=== PATIENT | female | born 1995 | race American Indian/Alaskan Native ===

== ENCOUNTER 2017-06-06 08:59 | Inpatient (IN) | payer MEDICAID ==
[2017-06-06] MEDS ORDERED: Sodium Chloride 0.9% 10 ML Syringe FLUSH PRN (13:07)
--- NOTE | 2017-06-06 13:27 | PCM.LDHP ---
L&D History of Present Illness - General Date of Service: 06/06/17 Admit Problem/Dx: Patient Status Order with Admit Dx/Problem 06/06/17 09:05 Patient Status [ADT] Routine Admission Diagnosis/Problem Admission Diagnosis/Problem Source of Information: Patient, Old Records History Limitations: Reports: No Limitations - History of Present Illness Introduction:: Cramping and contractions that last night. She noticed leakage of fluid this morning, cramping is mild to moderate nothing seems to improve it's every 10-15 minutes. No fever. She just recently presented to clinic for the first time, and from records she is not immune to rubella, aside depression and anxiety stable asthma that is well controlled, and he still does use during but she quit she also continues to smoke. Location, : Reports: Abdomen Improves with: Reports: None Worsens with: Reports: None Associated Symptoms: Reports: vaginal fluid - Related Data Allergies/Adverse Reactions: Allergies Allergy/AdvReac Type Severity Reaction Status Date / Time No Known Allergies Allergy Verified 06/06/17 13:09 Home Medications: Home Meds NK [No Known Home Meds] 04/08/15 [History] Past Medical History Respiratory History: Reports: Asthma CEMENT MIXER History: Reports: Other OB/BYN History: Psychiatric History: Reports: Anxiety, Depression Social & Family History - Family History Family Medical History: Noncontributory - Tobacco Use Smoking Status *Q: Current Every Day Smoker Years of Tobacco use: 4 Packs/Tins Daily: 0.5 Second Hand Smoke Exposure: Yes - Caffeine Use Caffeine Use: Reports: None - Recreational Drug Use Recreational Drug Use: No H&P Review of Systems - Review of Systems: Review Of Systems: ROS reveals no pertinent complaints other than HPI. L&D Exam - Exam Exam: See Below - Vital Signs Vital Signs: Last Vital Signs Temp Pulse 74 06/06/17 12:41 Resp BP 120/74 06/06/17 11:02 Pulse Ox 100 06/06/17 09:37 Weight: 77.111 kg - OB Specific Contraction Duration (sec): 50-70 Contraction Frequency (min): 3-4 Contraction Intensity: Mild - Morrissey Score Morrissey Score Cervix Position: Posterior Morrissey Score Consistency: Soft Morrissey Score Dilation: 1-2 cm Morrissey Score 's Station: -2 - Exam General: Alert, Oriented HEENT: PERRLA, Conjunctiva Clear, EACs Clear, EOMI, Hearing Intact, Mucosa Moist & Maybeury, Nares Patent, Normal Nasal Septum, Posterior Pharynx Clear, TMs Clear Neck: Supple, Trachea Midline Lungs: Clear to Auscultation, Normal Respiratory Effort Cardiovascular: Regular Rate, Regular Rhythm GI/Abdominal Exam: Normal Bowel Sounds, Soft, Non-Tender, No Organomegaly, No Distention, No Abnormal Bruit, No Mass, Pelvis Stable Rectal Exam: Normal Exam, Normal Rectal Tone Genitourinary: Normal external exam, Normal bimanual exam, Normal speculum exam Back Exam: Normal Inspection, Full Range of Motion Extremities: Normal Inspection, Normal Range of Motion, Non-Tender, No Pedal Edema, Normal Capillary Refill Skin: Warm, Dry, Intact Neurological: Cranial Nerves Intact, Reflexes Equal Bilateral Psychiatric: Alert, Normal Affect, Normal Mood - Patient Data Lab Results Last 24 hrs: Laboratory Results - last 24 hr 06/06/17 06/06/17 06/06/17 Range/Units 09:27 10:28 10:28 WBC 8.4 (4.5-12.0) X10-3/uL RBC 4.02 (3.23-5.20) x10(6)uL Hgb 11.2 L (11.5-15.5) g/dL Hct 33.1 (30.0-51.3) % MCV 82.3 (80-96) fL MCH 27.8 (27.7-33.6) pg MCHC 33.7 (32.2-35.4) g/dL RDW 13.3 (11.5-15.5) % Plt Count 287 (125-369) X10(3)uL MPV 8.8 (7.4-10.4) fL Neut % (Auto) 69.1 (46-82) % Lymph % (Auto) 24.3 (13-37) % [place] % (Auto) 5.0 (4-12) % Eos % (Auto) 1 (1.0-5.0) % Baso % (Auto) 1 (0-2) % Neut # (Auto) 5.8 (1.6-8.3) # Lymph # (Auto) 2.0 (0.6-5.0) # [place] # (Auto) 0.4 (0.0-1.3) # Eos # (Auto) 0.1 (0.0-0.8) # Baso # (Auto) 0.1 (0.0-0.2) # Sodium 137 (135-145) mmol/L Potassium 4.2 (3.5-5.3) mmol/L Chloride 103 (100-110) mmol/L Carbon Dioxide 22 (21-32) mmol/L BUN 6 L (7-18) mg/dL Creatinine 0.7 (0.55-1.02) mg/dL Est Cr Clr Drug Dosing TNP Estimated GFR (MDRD) > 60 (>60) BUN/Creatinine Ratio 8.6 L (9-20) Glucose 91 (80-116) mg/dL Calcium 8.9 (8.6-10.2) mg/dL Membrane Rupture Positive H (NEGATIVE) Blood Type Gel Antibody Screen 06/06/17 Range/Units 10:28 WBC (4.5-12.0) X10-3/uL RBC (3.23-5.20) x10(6)uL Hgb (11.5-15.5) g/dL Hct (30.0-51.3) % MCV (80-96) fL MCH (27.7-33.6) pg MCHC (32.2-35.4) g/dL RDW (11.5-15.5) % Plt Count (125-369) X10(3)uL MPV (7.4-10.4) fL Neut % (Auto) (46-82) % Lymph % (Auto) (13-37) % [place] % (Auto) (4-12) % Eos % (Auto) (1.0-5.0) % Baso % (Auto) (0-2) % Neut # (Auto) (1.6-8.3) # Lymph # (Auto) (0.6-5.0) # [place] # (Auto) (0.0-1.3) # Eos # (Auto) (0.0-0.8) # Baso # (Auto) (0.0-0.2) # Sodium (135-145) mmol/L Potassium (3.5-5.3) mmol/L Chloride (100-110) mmol/L Carbon Dioxide (21-32) mmol/L BUN (7-18) mg/dL Creatinine (0.55-1.02) mg/dL Est Cr Clr Drug Dosing Estimated GFR (MDRD) (>60) BUN/Creatinine Ratio (9-20) Glucose (80-116) mg/dL Calcium (8.6-10.2) mg/dL Membrane Rupture (NEGATIVE) Blood Type O POSITIVE Gel Antibody Screen Negative Result Diagrams: 06/06/17 10:28 06/06/17 10:28 - Problem List (1) Normal labor SNOMED Code(s): 33394492 ICD Code: O80 - ENCOUNTER FOR FULL-TERM UNCOMPLICATED DELIVERY; Z37.9 - OUTCOME OF DELIVERY, UNSPECIFIED Status: Acute Current Visit: Yes (2) Anxious depression SNOMED Code(s): 235158588 ICD Code: F41.9 - ANXIETY DISORDER, UNSPECIFIED; F32.9 - MAJOR DEPRESSIVE DISORDER, SINGLE EPISODE, UNSPECIFIED Status: Acute Current Visit: Yes (3) H/O drug abuse SNOMED Code(s): 545582750 ICD Code: Z87.898 - PERSONAL HISTORY OF OTHER SPECIFIED CONDITIONS Status: Acute Current Visit: Yes (4) Anemia SNOMED Code(s): 266274318 ICD Code: D64.9 - ANEMIA, UNSPECIFIED Status: Acute Current Visit: Yes (5) Rubella non-immune status, antepartum SNOMED Code(s): 188044223 ICD Code: O99.89 - OTH DISEASES AND CONDITIONS COMPL PREG/CHLDBRTH; Z28.3 - UNDERIMMUNIZATION STATUS Status: Acute Current Visit: Yes (6) Tobacco abuse SNOMED Code(s): 245701664 ICD Code: Z72.0 - TOBACCO USE Status: Acute Current Visit: Yes Problem List Initiated/Reviewed/Updated: Yes Orders Last 24hrs: Active Orders 24 hr Category Date Time Status Patient Status [ADT] Routine ADT 06/06/17 09:05 Active Communication Order [RC] ASDIRECTED Care 06/06/17 13:21 Ordered Communication Order [RC] ASDIRECTED Care 06/06/17 13:21 Ordered Communication Order [RC] ASDIRECTED Care 06/06/17 13:21 Ordered Communication Order [RC] ASDIRECTED Care 06/06/17 13:21 Ordered Monitoring [RC] CONTINUOUS Care 06/06/17 09:09 Active Notify Provider [RC] PRN Care 06/06/17 13:21 Ordered Notify Provider [RC] STAT Care 06/06/17 13:21 Ordered Vital Signs [RC] PER UNIT ROUTINE Care 06/06/17 13:21 Ordered AMNISURE RUPTURE MEMBRAN [BF] Routine Lab 06/06/17 09:27 Ordered DRUG SCREEN, URINE ALERE [URCHEM] Stat Lab 06/06/17 13:21 Ordered PATIENT RETYPE [BBK] Routine Lab 06/06/17 10:28 Results TYPE AND SCREEN [BBK] Routine Lab 06/06/17 10:28 Results UA W/MICROSCOPIC [URIN] Routine Lab 06/06/17 13:21 Ordered Lactated Ringers [Ringers, Lactated] 1,000 ml Med 06/06/17 13:15 Active IV ASDIRECTED Oxytocin/Normal Saline @ 2 MUNITS/MIN (1,000ml) Med 06/06/17 13:30 Ordered Oxytocin/Normal Saline [Pitocin in NS 20 Units/1,000 ML ] 20 unit in 1,000 ml IV TITRATE Sodium Chloride 0.9% [Saline Flush] Med 06/06/17 13:07 Active 10 ml FLUSH ASDIRECTED PRN Peripheral IV Insertion Adult [OM.PC] Routine Oth 06/06/17 13:07 Ordered Resuscitation Status Routine Resus Stat 06/06/17 09:09 Ordered Medication Orders Lactated Ringer's (Ringers, Lactated) 1,000 mls @ 125 mls/hr IV ASDIRECTED GEORGE Oxytocin/Sodium Chloride (Pitocin In Ns 20 Units/1,000 Ml) 20 unit in 1,000 mls @ 6 mls/hr IV TITRATE GEORGE; Protocol Sodium Chloride (Saline Flush) 10 ml FLUSH ASDIRECTED PRN PRN Reason: Keep Vein Open Assessment/Plan Comment:: Admit, augment labor with Pitocin. Obtain CBC CMP blood type and urine drug screen.
[2017-06-06] MEDS: Lactated Ringers 1,000 ML IV SCH ×2 (13:42→21:07)
[2017-06-06] MEDS ORDERED: Nalbuphine 10 MG/1 ML Vial IVPUSH PRN (21:40)
[2017-06-07] MEDS ORDERED: fentaNYL 100 MCG/2 ML SDV EPIDUR ONE (04:50)
[2017-06-07] MEDS ORDERED: fentaNYL 300 MCG in Ropivacaine 200 ML EPIDUR ONE (04:50)
[2017-06-07] MEDS: Lactated Ringers 1,000 ML IV SCH ×3 (05:23→19:30)
[2017-06-07] MEDS ORDERED: ePHEDrine 50 MG/ML SDV IVPUSH ONE (05:44)
[2017-06-07] MEDS ORDERED: diphenhydrAMINE 50 MG/ML SDV IV PRN ×2 (05:44→08:45)
[2017-06-07] MEDS ORDERED: Promethazine 12.5 MG in Sodium Chloride 0.9% 50 ML IV PRN ×2 (05:44→08:45)
[2017-06-07] MEDS ORDERED: Ondansetron 4 MG/2 ML SDV IVPUSH PRN ×2 (05:44→08:45)
[2017-06-07] MEDS ORDERED: Naloxone 0.4 MG/ML SDV IVPUSH PRN ×3 (05:44→08:45)
[2017-06-07] MEDS ORDERED: Lactated Ringers 500 ML IV SCH (05:45)
[2017-06-07] MEDS ORDERED: Citric Acid/Sodium Citrate Solution 30 ML Cup PO ONE (06:49)
[2017-06-07] MEDS ORDERED: Scopolamine 1.5 MG Transdermal Patch TRDERM ONE (07:00)
[2017-06-07] MEDS ORDERED: Morphine PF 10 MG/10 ML SDV EPIDUR ONE (07:30)
[2017-06-07] MEDS ORDERED: Dexamethasone 4 MG/ML 5 ML MDV IVPUSH ONE (07:30)
[2017-06-07] MEDS ORDERED: diphenhydrAMINE 50 MG/ML SDV IVPUSH ONE (07:30)
[2017-06-07] MEDS ORDERED: Midazolam 1 MG/ML 2 ML SDV IV ONE (07:30)
[2017-06-07] MEDS ORDERED: Oxytocin 10 Units/1 ML SDV IV ONE ×2 (07:30)
[2017-06-07] MEDS ORDERED: ePHEDrine 50 MG/ML SDV IV ONE (07:30)
[2017-06-07] MEDS ORDERED: fentaNYL 100 MCG/2 ML SDV IV ONE (07:30)
[2017-06-07] MEDS ORDERED: Lactated Ringers 1,000 ML IV ONE (07:30)
[2017-06-07] MEDS ORDERED: CHLOROPROCAINE EPIDUR ONE (07:30)
[2017-06-07] MEDS ORDERED: Ondansetron 4 MG/2 ML SDV IVPUSH ONE (07:30)
[2017-06-07] MEDS ORDERED: ceFAZolin 1 GM Vial IV ONE (07:30)
[2017-06-07] MEDS ORDERED: Morphine 2 MG/ML Syringe IVPUSH PRN ×2 (08:30→08:45)
[2017-06-07] MEDS ORDERED: ePHEDrine 50 MG/ML SDV IVPUSH PRN (08:31)
[2017-06-07] MEDS ORDERED: diphenhydrAMINE 50 MG/ML SDV IVPUSH PRN (08:31)
--- NOTE | 2017-06-07 08:31 | PCM.PNLD ---
Labor Progress Note - VS & Meds Vital Signs: Last Vital Signs Temp 98.8 F 06/07/17 04:43 Pulse 67 06/07/17 07:05 Resp 20 06/07/17 07:05 BP 126/70 06/07/17 07:05 Pulse Ox 100 06/07/17 07:05 Active Medications: Current Medications Diphenhydramine HCl (Benadryl) 25 mg IV ONETIME PRN PRN Reason: Pruritus Lactated Ringer's (Ringers, Lactated) 1,000 mls @ 125 mls/hr IV ASDIRECTED GEORGE Last Admin: 06/07/17 05:38 Dose: 125 mls/hr Oxytocin/Sodium Chloride (Pitocin In Ns 20 Units/1,000 Ml) 20 unit in 1,000 mls @ 6 mls/hr IV TITRATE GEORGE; Protocol Last Titration: 06/07/17 06:29 Dose: 0 munits/min, 0 mls/hr Lactated Ringer's (Ringers, Lactated) 500 mls @ 999 mls/hr IV .BOLUS GEORGE Promethazine HCl 12.5 mg/ (Sodium Chloride) 50.5 mls @ 200 mls/hr IV Q6H PRN PRN Reason: Nausea/Vomiting Nalbuphine HCl (Nubain) 10 mg IVPUSH Q3H PRN PRN Reason: pain Last Admin: 06/06/17 21:56 Dose: 10 mg Naloxone HCl (Narcan) 0.1 mg IVPUSH ONETIME PRN PRN Reason: Sedation Ondansetron HCl (Zofran) 4 mg IVPUSH Q6H PRN PRN Reason: Nausea/Vomiting Sodium Chloride (Saline Flush) 10 ml FLUSH ASDIRECTED PRN PRN Reason: Keep Vein Open Last Admin: 06/06/17 13:42 Dose: 10 ml Discontinued Medications Citric Acid/Sodium Citrate (Bicitra Solution) 30 ml PO ONETIME ONE Stop: 06/07/17 06:50 Last Admin: 06/07/17 07:09 Dose: 30 ml Ephedrine Sulfate (Ephedrine Sulfate) 5 mg IVPUSH ONETIME ONE Stop: 06/07/17 05:45 Scopolamine (Transderm-Scop) 1.5 mg TRDERM ONETIME ONE Stop: 06/07/17 07:01 Last Admin: 06/07/17 07:09 Dose: 1.5 mg - Uterine Contractions Uterine Monitoring Mode: External Soso Contraction Frequency (min): 4-8 Contraction Duration (sec): 40-50 Contraction Intensity: Moderate Uterine Resting Tone: Soft - Vaginal Exam Dilation (cm): 4 Effacement (Percent): 75 Station: -1 Cervical Position: Midposition Sterile Vaginal Exam Performed By: Chantale Sinclair - Labor Progress (Free Text) Labor Progress: I was called to see patient,after she hjad decelrations. A reveiw of the chart revealed Category II herat toens. O2 was initiated,and a C section was ordred. I eplained the risks and benefits. Dr Rust
[2017-06-07] MEDS ORDERED: Nalbuphine 10 MG/1 ML Vial IVPUSH PRN (08:45)
[2017-06-07] MEDS: Ketorolac 15 MG/ML SDV IVPUSH PRN ×2 (09:47→16:36)
[2017-06-08] MEDS: Ibuprofen 600 MG Tab PO SCH ×4 (00:40→17:50)
[2017-06-08] MEDS: Lactated Ringers 1,000 ML IV SCH ×3 (00:47→09:13)
--- NOTE | 2017-06-08 07:19 | DEL ---
DATE OF DELIVERY: 06/07/2017 PROCEDURE: . SCANNING COORDINATOR SURGEON: Dr. Gurrola. PREOPERATIVE DIAGNOSIS: Nonreassuring heart tones. POSTOPERATIVE DIAGNOSIS: Nonreassuring heart tones. FINDINGS: Live male with scores of 9 and 9. ANESTHESIA: Spinal. PERMIT: The patient accepted the risks and benefits of the procedure as explained by myself. ESTIMATED BLOOD LOSS: About 500 mL. COMPLICATIONS: None. PROCEDURE IN DETAIL: The patient was taken to the OR where the epidural anesthesia was found to be adequate. The patient was prepped and draped in the usual fashion, sterile with a dorsal supine position with a left tilt. A Pfannenstiel incision was made with a scalpel and carried through to the underlying layer of fascia using the Bovie. The fascia was incised in the midline and extended laterally using Wilder scissors. Lalita clamps were used to elevate the superior aspect of the fascial incision, which was elevated and underlying rectus muscles were dissected off bluntly and using the Wilder scissors. Attention was then turned to the inferior aspect of the fascial incision which in a similar fashion was grasped with Lalita clamps and elevated, and underlying rectus muscles were dissected off bluntly and using the Wilder scissors as well. The peritoneum was entered bluntly and a bladder blade was inserted. The vesicouterine peritoneum was identified with pickups and entered sharply with Zach. The incision was extended laterally and the bladder flap was created digitally. The bladder blade was reinserted and the lower uterine segment was incised in a transverse fashion using the scalpel and extended using manual traction. Clear fluid was noted. The was subsequently delivered atraumatically. The cord was cut and clamped. The infant was handed to the waiting nurses. Next, cord blood was obtained and subsequent to this, the placenta was removed spontaneously with a three-vessel cord noted. The uterus was exteriorized, cleared of all debris and clots. The incision of the uterus was repaired with two layers using 0 chromic suture. Hemostasis was visualized. The uterus was returned to the abdomen. The pelvis was copiously irrigated and the uterus incision was re-examined and noted to be hemostatic. The fascia was then closed with a 0 Vicryl and the subcutaneous layer closed with 3-0 plain PDF. This was returned to close the skin as well. Sponge, lap, and instrument counts were correct x3. The patient received 2 g of Ancef prior to the incision and was stable throughout the procedure to completion and transferred to the recovery room in stable condition. /[id number] KAVITHA/MATA
[2017-06-08] MEDS ORDERED: Acetaminophen/HYDROcodone 325-5 MG Tab PO PRN (10:24)
--- NOTE | 2017-06-08 12:51 | PN ---
DATE SEEN: 06/08/2017 REASON FOR VISIT: . HISTORY OF PRESENT ILLNESS: This is a 21-year-old female who had a yesterday. She complains of feeling tired. Pain is well controlled. She has a history of depression and anxiety previously and tobacco abuse that have been stable in . REVIEW OF SYSTEMS: No recent fever. Urine output more than 1200 overnight. Vaginal bleeding has improved. MEDICATIONS: Please see the list in E96. PHYSICAL EXAMINATION: VITAL SIGNS: Blood pressure is normal. Pulse is 77. She is afebrile. ABDOMEN: Soft. Fundal height about 20 cm. The Pfannenstiel incision appears intact and dry. Bowel sounds are present. CHEST: Clear. MENTAL STATUS: Flat affect. NEUROLOGIC: Normal. EXTREMITIES: No edema. LABORATORY DATA: Hemoglobin is 8.2. IMPRESSION: 1. Postop day one, primary . 2. Anxiety and depression. 3. Anemia of blood loss. 4. History of tobacco abuse. 5. Rubella nonimmune status. PLAN: 1. We will discontinue IV fluids and saline lock. 2. Start [place] 1 tablet every 6 hours p.r.n. for pain control. 3. She is having some depression. I believe she will probably benefit from an SSRI, Zoloft 50 mg a day. /[id number] KAVITHA/MATA
[2017-06-09] MEDS: Ibuprofen 600 MG Tab PO SCH ×4 (00:15→17:45)
[2017-06-09] MEDS ORDERED: Sertraline 50 MG Tab PO SCH (09:00)
--- NOTE | 2017-06-09 20:12 | PCM.PNPP ---
- General Info Date of Service: 06/09/17 Functional Status: Reports: Pain Controlled, Tolerating Diet - Review of Systems General: Reports: No Symptoms HEENT: Reports: No Symptoms Pulmonary: Reports: No Symptoms Psychiatric: Reports: Depression - General Info Date of Service: 06/09/17 - Patient Data Vital Signs - Most Recent: Last Vital Signs Temp 98.0 F 06/09/17 16:05 Pulse 60 06/09/17 16:05 Resp 14 06/09/17 16:05 BP 124/67 06/09/17 16:05 Pulse Ox 100 06/09/17 16:05 Weight - Most Recent: 77.111 kg Med Orders - Current: Current Medications Hydrocodone Bitart/Acetaminophen ([place] 325-5 Mg) 1 tab PO Q6H PRN PRN Reason: Breakthrough Pain Last Admin: 06/08/17 20:40 Dose: 1 tab Ibuprofen (Motrin) 600 mg PO Q6H GEORGE Last Admin: 06/09/17 17:45 Dose: 600 mg Sertraline HCl (Zoloft) 50 mg PO DAILY [facility] Last Admin: 06/09/17 09:12 Dose: Not Given Sodium Chloride (Saline Flush) 10 ml FLUSH ASDIRECTED PRN PRN Reason: Keep Vein Open Last Admin: 06/06/17 13:42 Dose: 10 ml Discontinued Medications Cefazolin Sodium (Ancef) 2 gm IV .STK-MED ONE Stop: 06/07/17 07:31 Chloroprocaine HCl (Nesacaine-Mpf 3%) 21 ml EPIDUR .STK-MED ONE Stop: 06/07/17 07:31 Citric Acid/Sodium Citrate (Bicitra Solution) 30 ml PO ONETIME ONE Stop: 06/07/17 06:50 Last Admin: 06/07/17 07:09 Dose: 30 ml Dexamethasone (Dexamethasone) 8 mg IVPUSH .STK-MED ONE Stop: 06/07/17 07:31 Diphenhydramine HCl (Benadryl) 25 mg IV ONETIME PRN PRN Reason: Pruritus Diphenhydramine HCl (Benadryl) 25 mg IVPUSH Q6H PRN PRN Reason: Itching or Nausea Diphenhydramine HCl (Benadryl) 25 mg IV ONETIME PRN PRN Reason: Pruritus Diphenhydramine HCl (Benadryl) 12.5 mg IVPUSH .STK-MED ONE Stop: 06/07/17 07:31 Ephedrine Sulfate (Ephedrine Sulfate) 5 mg IVPUSH ONETIME ONE Stop: 06/07/17 05:45 Ephedrine Sulfate (Ephedrine Sulfate) 5 mg IVPUSH ASDIRECTED PRN PRN Reason: Other Ephedrine Sulfate (Ephedrine Sulfate) 20 mg IV .STK-MED ONE Stop: 06/07/17 07:31 Fentanyl (Sublimaze) 100 mcg EPIDUR .STK-MED ONE Stop: 06/07/17 04:51 Fentanyl (Sublimaze) 100 mcg IV .STK-MED ONE Stop: 06/07/17 07:31 Lactated Ringer's (Ringers, Lactated) 1,000 mls @ 125 mls/hr IV ASDIRECTED [facility] Stop: 06/07/17 08:45 Last Admin: 06/07/17 05:38 Dose: 125 mls/hr Oxytocin/Sodium Chloride (Pitocin In Ns 20 Units/1,000 Ml) 20 unit in 1,000 mls @ 6 mls/hr IV TITRATE GEORGE; Protocol Stop: 06/07/17 07:15 Last Titration: 06/07/17 06:29 Dose: 0 munits/min, 0 mls/hr Lactated Ringer's (Ringers, Lactated) 500 mls @ 999 mls/hr IV .BOLUS GEORGE Promethazine HCl 12.5 mg/ (Sodium Chloride) 50.5 mls @ 200 mls/hr IV Q6H PRN PRN Reason: Nausea/Vomiting Lactated Ringer's (Ringers, Lactated) 1,000 mls @ 250 mls/hr IV ASDIRECTED [facility] Last Admin: 06/08/17 09:13 Dose: 250 mls/hr Promethazine HCl 12.5 mg/ (Sodium Chloride) 50.5 mls @ 200 mls/hr IV Q6H PRN PRN Reason: Nausea/Vomiting Fentanyl 300 mcg/ Ropivacaine 206 mls @ as directed EPIDUR .STK-MED ONE Stop: 06/07/17 04:51 Lactated Ringer's (Ringers, Lactated) 1,000 mls @ as directed IV .STK-MED ONE Stop: 06/07/17 07:31 Ketorolac Tromethamine (Toradol) 15 mg IVPUSH Q6H PRN PRN Reason: Pain Stop: 06/12/17 08:47 Last Admin: 06/07/17 16:36 Dose: 15 mg Midazolam HCl (Versed 1 Mg/Ml) 2 mg IV .STK-MED ONE Stop: 06/07/17 07:31 Morphine Sulfate (Morphine) 2 mg IVPUSH Q3M PRN PRN Reason: Abdominal Pain Morphine Sulfate (Morphine) 2 mg IVPUSH Q1H PRN PRN Reason: Pain Morphine Sulfate (Duramorph Pf) 4 mg EPIDUR .STK-MED ONE Stop: 06/07/17 07:31 Nalbuphine HCl (Nubain) 10 mg IVPUSH Q3H PRN PRN Reason: pain Last Admin: 06/06/17 21:56 Dose: 10 mg Nalbuphine HCl (Nubain) 10 mg IVPUSH Q1H PRN PRN Reason: Pruritus Naloxone HCl (Narcan) 0.1 mg IVPUSH ONETIME PRN PRN Reason: Sedation Naloxone HCl (Narcan) 0.1 mg IVPUSH ONETIME PRN PRN Reason: Respiratory Depression Naloxone HCl (Narcan) 0.1 mg IVPUSH ONETIME PRN PRN Reason: Oversedation Ondansetron HCl (Zofran) 4 mg IVPUSH Q6H PRN PRN Reason: Nausea/Vomiting Ondansetron HCl (Zofran) 4 mg IVPUSH Q6H PRN PRN Reason: Nausea/Vomiting Ondansetron HCl (Zofran) 4 mg IVPUSH .STK-MED ONE Stop: 06/07/17 07:31 Oxytocin (Pitocin) 20 unit IV .STK-MED ONE Stop: 06/07/17 07:31 Oxytocin (Pitocin) 10 unit IV .STK-MED ONE Stop: 06/07/17 07:31 Scopolamine (Transderm-Scop) 1.5 mg TRDERM ONETIME ONE Stop: 06/07/17 07:01 Last Admin: 06/07/17 07:09 Dose: 1.5 mg - Infant Interaction Infant Disposition, : in Room with Family Interaction: Holding Support Person: Mother - Recovery Exam Fundal Tone: Firm Fundal Level: 1 Fingerbreadths Below Umbilicus Fundal Placement: Midline Lochia Amount: Small Lochia Color: Rubra/Red Perineum Description: Edematous Episiotomy/Laceration: None Bladder Status: Voiding Urinary Elimination: Voided - Exam General: Alert Lungs: Clear to Auscultation Psy/Mental Status: Depressed - Problem List & Annotations (1) Normal labor SNOMED Code(s): 66654802 Code(s): O80 - ENCOUNTER FOR FULL-TERM UNCOMPLICATED DELIVERY; Z37.9 - OUTCOME OF DELIVERY, UNSPECIFIED Status: Acute Current Visit: Yes (2) Anxious depression SNOMED Code(s): 452682453 Code(s): F41.9 - ANXIETY DISORDER, UNSPECIFIED; F32.9 - MAJOR DEPRESSIVE DISORDER, SINGLE EPISODE, UNSPECIFIED Status: Acute Current Visit: Yes (3) H/O drug abuse SNOMED Code(s): 394555892 Code(s): Z87.898 - PERSONAL HISTORY OF OTHER SPECIFIED CONDITIONS Status: Acute Current Visit: Yes (4) Anemia SNOMED Code(s): 554946253 Code(s): D64.9 - ANEMIA, UNSPECIFIED Status: Acute Current Visit: Yes (5) Rubella non-immune status, antepartum SNOMED Code(s): 630682414 Code(s): O99.89 - OTH DISEASES AND CONDITIONS COMPL PREG/CHLDBRTH; Z28.3 - UNDERIMMUNIZATION STATUS Status: Acute Current Visit: Yes (6) Tobacco abuse SNOMED Code(s): 550492831 Code(s): Z72.0 - TOBACCO USE Status: Acute Current Visit: Yes (7) care and examination SNOMED Code(s): 387730625, 480476756, 409589175 Code(s): Z39.2 - ENCOUNTER FOR ROUTINE FOLLOW-UP Status: Acute Current Visit: Yes - Problem List Review Problem List Initiated/Reviewed/Updated: Yes - My Orders Last 24 Hours: My Active Orders 06/09/17 07:00 Insert Nicolas Catheter [Insert Urinary Catheter] [OM.PC] Q24H 06/09/17 09:00 Sertraline [Zoloft] 50 mg PO DAILY - Plan Plan:: Patient has declined to Zoloft. We'll continue to encourage ambulation adequate diet and breast-feeding. Will discharge tomorrow morning.
[2017-06-10] MEDS: Ibuprofen 600 MG Tab PO SCH ×3 (00:14→11:45)
[2017-06-10 02:17] VITALS: BP 122/84
--- NOTE | 2017-06-10 10:13 | PCM.PNPP ---
- General Info Date of Service: 06/10/17 Functional Status: Reports: Tolerating Diet. Denies: Pain Controlled, Ambulating - Review of Systems General: Reports: No Symptoms HEENT: Reports: No Symptoms Pulmonary: Reports: No Symptoms Cardiovascular: Reports: No Symptoms Gastrointestinal: Reports: No Symptoms Genitourinary: Reports: No Symptoms - General Info Date of Service: 06/10/17 - Patient Data Vital Signs - Most Recent: Last Vital Signs Temp 97.8 F 06/10/17 00:00 Pulse 58 L 06/10/17 00:00 Resp 16 06/10/17 00:00 BP 122/84 06/10/17 00:00 Pulse Ox 98 06/10/17 00:00 Weight - Most Recent: 77.111 kg Med Orders - Current: Current Medications Hydrocodone Bitart/Acetaminophen ([place] 325-5 Mg) 1 tab PO Q6H PRN PRN Reason: Breakthrough Pain Last Admin: 06/08/17 20:40 Dose: 1 tab Ibuprofen (Motrin) 600 mg PO Q6H [facility] Last Admin: 06/10/17 05:54 Dose: 600 mg Sertraline HCl (Zoloft) 50 mg PO DAILY [facility] Last Admin: 06/09/17 09:12 Dose: Not Given Sodium Chloride (Saline Flush) 10 ml FLUSH ASDIRECTED PRN PRN Reason: Keep Vein Open Last Admin: 06/06/17 13:42 Dose: 10 ml Discontinued Medications Cefazolin Sodium (Ancef) 2 gm IV .STK-MED ONE Stop: 06/07/17 07:31 Chloroprocaine HCl (Nesacaine-Mpf 3%) 21 ml EPIDUR .STK-MED ONE Stop: 06/07/17 07:31 Citric Acid/Sodium Citrate (Bicitra Solution) 30 ml PO ONETIME ONE Stop: 06/07/17 06:50 Last Admin: 06/07/17 07:09 Dose: 30 ml Dexamethasone (Dexamethasone) 8 mg IVPUSH .STK-MED ONE Stop: 06/07/17 07:31 Diphenhydramine HCl (Benadryl) 25 mg IV ONETIME PRN PRN Reason: Pruritus Diphenhydramine HCl (Benadryl) 25 mg IVPUSH Q6H PRN PRN Reason: Itching or Nausea Diphenhydramine HCl (Benadryl) 25 mg IV ONETIME PRN PRN Reason: Pruritus Diphenhydramine HCl (Benadryl) 12.5 mg IVPUSH .STK-MED ONE Stop: 06/07/17 07:31 Ephedrine Sulfate (Ephedrine Sulfate) 5 mg IVPUSH ONETIME ONE Stop: 06/07/17 05:45 Ephedrine Sulfate (Ephedrine Sulfate) 5 mg IVPUSH ASDIRECTED PRN PRN Reason: Other Ephedrine Sulfate (Ephedrine Sulfate) 20 mg IV .STK-MED ONE Stop: 06/07/17 07:31 Fentanyl (Sublimaze) 100 mcg EPIDUR .STK-MED ONE Stop: 06/07/17 04:51 Fentanyl (Sublimaze) 100 mcg IV .STK-MED ONE Stop: 06/07/17 07:31 Lactated Ringer's (Ringers, Lactated) 1,000 mls @ 125 mls/hr IV ASDIRECTED [facility] Stop: 06/07/17 08:45 Last Admin: 06/07/17 05:38 Dose: 125 mls/hr Oxytocin/Sodium Chloride (Pitocin In Ns 20 Units/1,000 Ml) 20 unit in 1,000 mls @ 6 mls/hr IV TITRATE GEORGE; Protocol Stop: 06/07/17 07:15 Last Titration: 06/07/17 06:29 Dose: 0 munits/min, 0 mls/hr Lactated Ringer's (Ringers, Lactated) 500 mls @ 999 mls/hr IV .BOLUS GEORGE Promethazine HCl 12.5 mg/ (Sodium Chloride) 50.5 mls @ 200 mls/hr IV Q6H PRN PRN Reason: Nausea/Vomiting Lactated Ringer's (Ringers, Lactated) 1,000 mls @ 250 mls/hr IV ASDIRECTED [facility] Last Admin: 06/08/17 09:13 Dose: 250 mls/hr Promethazine HCl 12.5 mg/ (Sodium Chloride) 50.5 mls @ 200 mls/hr IV Q6H PRN PRN Reason: Nausea/Vomiting Fentanyl 300 mcg/ Ropivacaine 206 mls @ as directed EPIDUR .STK-MED ONE Stop: 06/07/17 04:51 Lactated Ringer's (Ringers, Lactated) 1,000 mls @ as directed IV .STK-MED ONE Stop: 06/07/17 07:31 Ketorolac Tromethamine (Toradol) 15 mg IVPUSH Q6H PRN PRN Reason: Pain Stop: 06/12/17 08:47 Last Admin: 06/07/17 16:36 Dose: 15 mg Midazolam HCl (Versed 1 Mg/Ml) 2 mg IV .STK-MED ONE Stop: 06/07/17 07:31 Morphine Sulfate (Morphine) 2 mg IVPUSH Q3M PRN PRN Reason: Abdominal Pain Morphine Sulfate (Morphine) 2 mg IVPUSH Q1H PRN PRN Reason: Pain Morphine Sulfate (Duramorph Pf) 4 mg EPIDUR .STK-MED ONE Stop: 06/07/17 07:31 Nalbuphine HCl (Nubain) 10 mg IVPUSH Q3H PRN PRN Reason: pain Last Admin: 06/06/17 21:56 Dose: 10 mg Nalbuphine HCl (Nubain) 10 mg IVPUSH Q1H PRN PRN Reason: Pruritus Naloxone HCl (Narcan) 0.1 mg IVPUSH ONETIME PRN PRN Reason: Sedation Naloxone HCl (Narcan) 0.1 mg IVPUSH ONETIME PRN PRN Reason: Respiratory Depression Naloxone HCl (Narcan) 0.1 mg IVPUSH ONETIME PRN PRN Reason: Oversedation Ondansetron HCl (Zofran) 4 mg IVPUSH Q6H PRN PRN Reason: Nausea/Vomiting Ondansetron HCl (Zofran) 4 mg IVPUSH Q6H PRN PRN Reason: Nausea/Vomiting Ondansetron HCl (Zofran) 4 mg IVPUSH .STK-MED ONE Stop: 06/07/17 07:31 Oxytocin (Pitocin) 20 unit IV .STK-MED ONE Stop: 06/07/17 07:31 Oxytocin (Pitocin) 10 unit IV .STK-MED ONE Stop: 06/07/17 07:31 Scopolamine (Transderm-Scop) 1.5 mg TRDERM ONETIME ONE Stop: 06/07/17 07:01 Last Admin: 06/07/17 07:09 Dose: 1.5 mg - Interaction Disposition, : in Room with Family Interaction: Holding Infant Support Person: Mother - Recovery Exam Fundal Tone: Firm Fundal Level: 1 Fingerbreadths Below Umbilicus Fundal Placement: Midline Lochia Amount: Scant, Small Lochia Color: Rubra/Red Perineum Description: Edematous Episiotomy/Laceration: None Bladder Status: Voiding Urinary Elimination: Voided - Exam General: Alert, Oriented HEENT: Pupils Equal GI/Abdominal Exam: Normal Bowel Sounds, Soft, Non-Tender, No Organomegaly, No Distention, No Abnormal Bruit, No Mass, Pelvis Stable Psy/Mental Status: Depressed - Problem List & Annotations (1) Normal labor SNOMED Code(s): 37607956 Code(s): O80 - ENCOUNTER FOR FULL-TERM UNCOMPLICATED DELIVERY; Z37.9 - OUTCOME OF DELIVERY, UNSPECIFIED Status: Acute Current Visit: Yes (2) Anxious depression SNOMED Code(s): 884585178 Code(s): F41.9 - ANXIETY DISORDER, UNSPECIFIED; F32.9 - MAJOR DEPRESSIVE DISORDER, SINGLE EPISODE, UNSPECIFIED Status: Acute Current Visit: Yes (3) H/O drug abuse SNOMED Code(s): 922911607 Code(s): Z87.898 - PERSONAL HISTORY OF OTHER SPECIFIED CONDITIONS Status: Acute Current Visit: Yes (4) Anemia SNOMED Code(s): 459436140 Code(s): D64.9 - ANEMIA, UNSPECIFIED Status: Acute Current Visit: Yes (5) Rubella non-immune status, antepartum SNOMED Code(s): 088754778 Code(s): O99.89 - OTH DISEASES AND CONDITIONS COMPL PREG/CHLDBRTH; Z28.3 - UNDERIMMUNIZATION STATUS Status: Acute Current Visit: Yes (6) Tobacco abuse SNOMED Code(s): 892141817 Code(s): Z72.0 - TOBACCO USE Status: Acute Current Visit: Yes (7) care and examination SNOMED Code(s): 019439129, 412740936, 292648053 Code(s): Z39.2 - ENCOUNTER FOR ROUTINE FOLLOW-UP Status: Acute Current Visit: Yes - Problem List Review Problem List Initiated/Reviewed/Updated: Yes - My Orders Last 24 Hours: My Active Orders 06/10/17 07:00 Insert Nicolas Catheter [Insert Urinary Catheter] [OM.PC] Q24H - Plan Plan:: Patient has declined to Zoloft. We'll continue to encourage ambulation adequate diet and breast-feeding. Will discharge today
--- NOTE | 2017-06-10 12:57 | DISCH ---
DISCHARGE DATE: 06/10/2017 REASON FOR ADMISSION: Premature rupture of membranes, anxiety, depression, history of drug use, tobacco abuse. DISCHARGE DIAGNOSES: 1. Primary . 2. Depression. 3. Tobacco abuse. PROCEDURE: performed on Wednesday, the . BRIEF HISTORY AND HOSPITAL COURSE: This is a 21-year-old female, primigravida, who came in with premature rupture of membranes before labor began and she was observed and induction of labor was performed with Pitocin, but she was unable to tolerate the induction with nonreassuring heart tones. was performed on the . , she was noted to be quiet and non interactive but otherwise did well. Her vital signs were normal. She was discharged on the with a prescription for hydrocodone one tablet every 6 hours p.r.n., 15 tablets and vitamins 1 tablet a day. Followup appointment was scheduled for Wednesday, June 14, 2017. Please note that I spent more than 35 minutes in discharging the patient. /[id number] KAVITHA/MATA
== END 2017-06-10 12:25 | disposition home or self-care (01) | DRG 766 ==
LOC: FB.OBCHECK 08:59 → FB.OB 09:00
PROVIDERS: ADMIT Family Medicine; ATTEND Family Medicine
PROC: 10D00Z1 Extraction of Products of Conception, Low, Open Approach (ICD-10-PCS; principal; 2017-06-07)
PROC: 6A550ZT Pheresis of Cord Blood Stem Cells, Single (ICD-10-PCS; 2017-06-07)
DX: O76 Abnormality in fetal heart rate and rhythm complicating labor and delivery (principal); O99.334 Smoking (tobacco) complicating childbirth; F17.210 Nicotine dependence, cigarettes, uncomplicated; O99.344 Other mental disorders complicating childbirth; Z3A.38 38 weeks gestation of pregnancy; Z37.0 Single live birth; F32.9 Major depressive disorder, single episode, unspecified; F41.9 Anxiety disorder, unspecified; O99.89 Other specified diseases and conditions complicating pregnancy, childbirth and the puerperium; Z28.3 Underimmunization status; F53 Mental and behavioral disorders associated with the puerperium, not elsewhere classified; Z87.898 Personal history of other specified conditions; O61.0 Failed medical induction of labor; O42.92 Full-term premature rupture of membranes, unspecified as to length of time between rupture and onset of labor
CPT/HCPCS: 01967-QZ; 36415; 51702; 80048; 80305; 81001; 84112; 85025; 85027; 86850; 86900; 86901; 87086; 88307; A9270-GY; J0690; J1100; J1200; J1885; J2250; J2270; J2300; J2400; J2405; J2590; J2795; J3010; J7050; J7120

== ENCOUNTER 2020-06-28 03:23 | Emergency (ER) | payer MEDICAID ==
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
[2020-06-28] MEDS ORDERED: Sodium Chloride 0.9% 500 ML IV ONE ×2 (03:53→05:16)
[2020-06-28] MEDS ORDERED: Sodium Chloride 0.9% 1,000 ML IV SCH (04:00)
[2020-06-28] MEDS ORDERED: Iopamidol 755 Mg/ML 100 ML Bottle IV ONE (04:30)
[2020-06-28] MEDS: Sodium Chloride 0.9% 10 ML Syringe FLUSH PRN ×2 (05:00→06:54)
[2020-06-28 05:20] VITALS: BP 127/74; PULSE 128
[2020-06-28] MEDS ORDERED: Diphtheria,Pertussis(Acell),Tetanus Vaccine 0.5 ML Syringe IM ONE (05:22)
[2020-06-28] MEDS ORDERED: Sodium Chloride 0.9% 1,000 ML IV ONE (05:39)
[2020-06-28] MEDS ORDERED: Ondansetron 4 MG/2 ML SDV IVPUSH ONE (06:49)
[2020-06-28] MEDS ORDERED: Morphine 4 MG/ML VIAL IVPUSH ONE (06:49)
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
== END 2020-06-28 07:25 ==
LOC: FB.ED 03:23
DX: S06.6X9A Traumatic subarachnoid hemorrhage with loss of consciousness of unspecified duration, initial encounter (principal); S02.602A Fracture of unspecified part of body of left mandible, initial encounter for closed fracture; S20.20XA Contusion of thorax, unspecified, initial encounter; S00.431A Contusion of right ear, initial encounter; J45.909 Unspecified asthma, uncomplicated; Z72.0 Tobacco use; Z23 Encounter for immunization; Y04.0XXA Assault by unarmed brawl or fight, initial encounter
CPT/HCPCS: 36415; 70450; 70486; 71045; 71260; 72125; 73110; 74177; 80053; 80305; 80307; 81001; 81025; 83690; 85025; 90471; 90715; 96374; 96375; 99285; J2270; J2405; J7030; Q9967

== ENCOUNTER 2020-12-26 19:05 | Emergency (ER) | payer MEDICAID ==
[2020-12-26] MEDS ORDERED: Ibuprofen 800 MG Tab PO STA (19:43)
[2020-12-26] MEDS ORDERED: traMADol 50 MG Tab PO STA (19:43)
[2020-12-26] MEDS ORDERED: Acetaminophen 500 MG Tab PO STA (19:43)
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
[2020-12-26 21:41] VITALS: BP 122/86; PULSE 68
== END 2020-12-26 21:30 | disposition home or self-care (01) ==
LOC: FB.ED 19:05
DX: S20.219A Contusion of unspecified front wall of thorax, initial encounter (principal); S00.83XA Contusion of other part of head, initial encounter; Z72.0 Tobacco use; Y04.2XXA Assault by strike against or bumped into by another person, initial encounter
CPT/HCPCS: 70450; 70486; 71111; 99284-25; A9270-GY

== ENCOUNTER 2022-05-12 02:52 | Emergency (ER) | payer SELFPAY ==
[2022-05-12 03:50] VITALS: BP 134/92; PULSE 117
== END 2022-05-12 04:15 ==
LOC: FB.ED 02:52
DX: S09.90XA Unspecified injury of head, initial encounter (principal); J45.909 Unspecified asthma, uncomplicated; W10.9XXA Fall (on) (from) unspecified stairs and steps, initial encounter
CPT/HCPCS: 70450; 99283

== ENCOUNTER 2024-05-18 03:28 | Emergency (ER) | payer MEDICAID ==
[2024-05-18 04:31] VITALS: PULSE 110
[2024-05-18 04:32] VITALS: BP 121/82
== END 2024-05-18 04:58 | disposition home or self-care (01) ==
LOC: FB.ED 03:28
DX: S02.2XXA Fracture of nasal bones, initial encounter for closed fracture (principal); J45.909 Unspecified asthma, uncomplicated; F17.210 Nicotine dependence, cigarettes, uncomplicated; W22.8XXA Striking against or struck by other objects, initial encounter
CPT/HCPCS: 70450; 99284

== ENCOUNTER 2024-05-18 14:47 | Emergency (ER) | payer MEDICAID ==
[2024-05-18 15:47] VITALS: BP 138/79; PULSE 86
== END 2024-05-18 15:20 | disposition home or self-care (01) ==
LOC: FB.ED 14:47
DX: S02.2XXA Fracture of nasal bones, initial encounter for closed fracture (principal); F10.129 Alcohol abuse with intoxication, unspecified; J45.909 Unspecified asthma, uncomplicated; X58.XXXA Exposure to other specified factors, initial encounter
CPT/HCPCS: 99284